=== PATIENT | male | born 1945 | race Caucasian/White ===

== ENCOUNTER → 2021-09-03 | Outpatient (CLI) | payer MEDICARE, OTHER ==
[2021-09-03 13:39] LABS: HEMATOCRIT 45 % (40-54); HEMOGLOBIN 14.9 g/dL (13.3-17.7); MEAN CORPUSCULAR HEMOGLOBIN 30 pg (25-34); MEAN CORPUSCULAR HGB CONC 34 g/dL (32-36); MEAN CORPUSCULAR VOLUME 90 fL (80-99); MEAN PLATELET VOLUME 8.9 fL (9.0-12.2); PLATELET COUNT 210 10^3/uL (130-400)
--- NOTE | 2021-09-03 13:49 | Diagnostic Imaging Report ---
INDICATION: COUGH. COMPARISON: None. FINDINGS: Frontal and lateral views of the chest demonstrate normal heart size and pulmonary vascularity. The lungs are clear. There are no signs of infiltrate, pleural effusions, or pneumothoraces. The visualized osseous structures show no acute abnormalities. IMPRESSION: No acute process. No signs of infiltrates, effusions, or pneumothoraces. Dictated by: Dictated on workstation # [id number]
[2021-09-03 14:22] LABS: ALBUMIN 3.9 GM/DL (3.2-4.5); BILIRUBIN,TOTAL 0.4 MG/DL (0.1-1.0); CALCIUM 9.2 MG/DL (8.5-10.1); CREATININE SERUM 0.95 MG/DL (0.60-1.30); FREE T4 (FREE THYROXINE) 0.91 NG/DL (0.70-1.48); POTASSIUM 4.3 MMOL/L (3.6-5.0); TOTAL PROTEIN 7.5 GM/DL (6.4-8.2)
== END ==
LOC: RAD 13:01
PROVIDERS: ATTEND Internal Medicine
DX: R05.9 Cough, unspecified (principal); E11.9 Type 2 diabetes mellitus without complications; I10 Essential (primary) hypertension
CPT/HCPCS: 36415; 71046; 80053; 80061; 82043; 83036; 83880; 84439; 84443; 85027

== ENCOUNTER → 2021-11-05 | Outpatient (CLI) | payer MEDICARE, OTHER ==
[~2021-11-05] MED LIST: CATHETER FLUSH 10 ML SYR IV PRN; REGADENOSON 0.4 MG/5 ML SYR (LEXISCAN) IV ONE
[2021-11-05 13:37] VITALS: BP 147/74
--- NOTE | 2021-11-05 15:56 | Cardiology Stress Test Report ---
Stress Test Report Date of Procedure/Referring: Date of Procedure: Nov 05, 2021 PCP Livia Aldridge MD Admitting Physician Yolanda Ga DO Indications: CP Baseline Heart Rate: 70 Baseline Blood Pressure: Blood Pressure Systolic: 147 Blood Pressure Diastolic: 74 Baseline Vitals Vital Signs Date Time Temp Pulse Resp B/P (MAP) Pulse Ox O2 Delivery O2 Flow Rate FiO2 11/05/21 13:37 85 147/74 (98) 98 Room Air Baseline EKG: Baseline EKG: NSR Summary After explaining the procedure to the patient, he signed a consent and then brought to the stress nuclear laboratory. Patient received 0.4 mg Lexiscan for stress test, ECG, heart rate and blood pressure were monitored continuously. Resting and stress dose of radio tracer were injected, imaging was acquired and reviewed in short axis, horizontal long axis and vertical long axis views. TID: 1.19 SSS: 5 SDS: 4 EF: 61 1. Patient tolerated Lexiscan well 2. Mild decrease uptake at the mid and apical anterolateral and inferolateral wall with mild reversibility 3. Normal left ventricular size, EF 61% LIVIA ALDRIDGE MD Nov 05, 2021 15:56
== END ==
LOC: CARD 12:00
PROVIDERS: ATTEND Internal Medicine Cardiovascular Disease
DX: I35.1 Nonrheumatic aortic (valve) insufficiency (principal); I35.8 Other nonrheumatic aortic valve disorders; I11.9 Hypertensive heart disease without heart failure; I25.10 Atherosclerotic heart disease of native coronary artery without angina pectoris
CPT/HCPCS: 78452; 93017; 93306; A9502

== ENCOUNTER 2021-11-19 09:00 | Day surgery (SDC) | payer MEDICARE, OTHER ==
[~2021-11-19] VITALS: Ht 187.9 cm; Wt 139.5 kg
[2021-11-19 07:38] VITALS: BP 145/80
--- NOTE | 2021-11-19 07:53 | Diagnostic Imaging Report ---
EXAMINATION: Chest 1 view HISTORY: ABNORMAL STRESS TEST, SOB COMPARISON: 09/03/2021 FINDINGS: Heart size is normal. There is prominence of the pulmonary vasculature which can be seen with pulmonary vascular congestion. The lungs are clear without consolidation, pleural effusion, or pneumothorax. The osseous structures are intact. IMPRESSION: 1. No acute radiographic abnormality in the chest. 2. Findings suggestive of pulmonary vascular congestion. Dictated by: Dictated on workstation # [id number]
[2021-11-19 07:56] LABS: HEMATOCRIT 41 % (40-54); HEMOGLOBIN 13.6 g/dL (13.3-17.7); MEAN CORPUSCULAR HEMOGLOBIN 29 pg (25-34); MEAN CORPUSCULAR HGB CONC 33 g/dL (32-36); MEAN CORPUSCULAR VOLUME 89 fL (80-99); MEAN PLATELET VOLUME 9.4 fL (9.0-12.2); PLATELET COUNT 180 10^3/uL (130-400); WHITE BLOOD COUNT 7.1 10^3/uL (4.3-11.0)
[2021-11-19 08:17] LABS: ALBUMIN 3.8 GM/DL (3.2-4.5); BILIRUBIN,TOTAL 0.4 MG/DL (0.1-1.0); CALCIUM 8.6 MG/DL (8.5-10.1); CREATININE SERUM 1.04 MG/DL (0.60-1.30); POTASSIUM 4.1 MMOL/L (3.6-5.0); TOTAL PROTEIN 7.1 GM/DL (6.4-8.2)
[2021-11-19 08:23] LABS: INR 0.9 (0.8-1.4); PROTHROMBIN TIME PATIENT 12.4 SEC (12.2-14.7)
[~2021-11-19 09:00] MED LIST changes: +ASPI-1238 PO; +ATOR20TA66 PO; -CATHETER FLUSH 10 ML SYR IV PRN; +FLUT1DIS26 IH; +HEParin (CATH LAB) 2,000 ML IV ONE; +IPRA3AMP31 IH; +LIDOCAINE 1% INJ 20 ML VIAL ONE; +LOSA25TA41 PO; +NS IV 1000 ML 1,000 ML IV SCH; +NS IV 1000 ML 1,000 ML ONE; -REGADENOSON 0.4 MG/5 ML SYR (LEXISCAN) IV ONE
--- NOTE | 2021-11-19 09:50 | Conscious Sedation/ASA ---
Conscious Sedation Pre-Proced Time 09:49 ASA Score 3 For ASA 3 and 4: Consider anesthesia and medical clearance. Also, for patients with a history of failed moderate sedation consider anesthesia. Airway Lungs Heart ASA score ASA 1: a normal healthy patient ASA 2: a patient with a mild systemic disease (mid diabetes, controlled hypertension, obesity x ASA 3: a patient with a severe systemic disease that limits activity (angina, COPD, prior Myocardial infarction) ASA 4: a patient with an incapacitating disease that is a constant threat to life (CHF, renal failure) ASA 5: a moribund patient not expected to survive 24 hrs. (ruptured aneurysm) ASA 6: a declared brain- patient whose organs are being harvested. For emergent operations, add the letter E after the classification Mallampati Classification Grade 3 Sedation Plan Analgesia, Amnesia, Plan communicated to team members, Discussed options with patient/fam, Discussed risks with patient/fam The patient is an appropriate candidate to undergo the planned procedure, sedation, and anesthesia. The patient immediately re-assessed prior to indication. LIVIA ZAMARRIPA MD Nov 19, 2021 09:50
[2021-11-19] MEDS ORDERED: VERAPAMIL 5 MG/2 ML (CALAN) VIAL IV ONE (10:44)
[2021-11-19] MEDS ORDERED: HEParin 1000 UNIT/ML (10ML VIAL) FOR BOLUS ONE (10:44)
[2021-11-19] MEDS ORDERED: fentaNYL INJ 100 MCG/2 ML AMP ONE (10:44)
[2021-11-19] MEDS ORDERED: MIDAZOLAM 5 MG/5 ML (VERSED) VIAL ONE (10:44)
[2021-11-19] MEDS ORDERED: NITRO DRIP 25000 MCG/D5W 250 ML IV ONE (10:44)
[2021-11-19] MEDS ORDERED: ASPIRIN 325 MG (5 GR) TABLET ONE (11:36)
[2021-11-19] MEDS ORDERED: CLOPIDOGREL 300 MG (PLAVIX) TABLET PO ONE (11:37)
--- NOTE | 2021-11-19 11:41 | Cardiac Cath Report ---
Cardiac Cath Report Physician (s)/Editor Managing Newspaper (s) Physician LIVIA ZAMARRIPA MD Pre-Procedure Diagnosis Pre-Procedure Diagnosis: Coronary artery disease Post-Procedure Note Procedure Start Date: Nov 19, 2021 Name of Procedure: Left heart catheterization Stenting to the ramus intermedius Findings/Procedure Note PROCEDURE NOTE: 76-year-old gentleman with history of hypertension, hyperlipidemia, has been having shortness of breath, had an abnormal stress test, scheduled for cardiac catheterization possible PTCA. After explaining the procedure to the patient, all pros and cons were explained, all questions were answered. The patient signed the consent and then he was placed on the cardiac catheterization laboratory. Groin was prepped SL fashion local anesthesia was used. Sheath placed in the right radial artery, [place] catheter was advanced to the left ventricular cavity, pressure was measured, pullback to the aorta was done, pressure was measured, engaged the right and left coronary system, angiogram was done. Patient was noted to have severe ostial and proximal ramus intermedius artery branch. He was given a total study of 6000 units of heparin, catheter was exchanged using EBU 3.5 guide. BMW wire was advanced and parked in the distal ramus intermedius then predilatation with 3 x 20 balloon was done then I proceeded with deployment of davy point stent 3 x 28 mm expanded to 3.2 mm under 15 roshni with excellent results, angiogram showed no complication. At the end of the procedure the sheath was removed. Vascular band deployed FINDINGS: Hemodynamics LV 120/8, end-diastolic pressure of 8 Aorta 111/66 mean of 86 ANATOMY: Left Main is free of obstructive disease Left Anterior Descending has mild disease slightly tortuous artery, there is a small diagonal artery that have severe stenosis, very small artery for intervention Left Circumflex is moderate in size with mild to moderate disease in the midportion nonobstructive disease Ramus intermedius is a large artery with severe ostial and proximal stenosis, cee ccessful balloon angioplasty and stenting using davy point stent 3 x 28 mm expanded to 3.2 mm with excellent results Right Coronary Artery is moderate in size with moderate disease nonobstructive disease LV Gram was not done, pressure was measured CONCLUSION: 1. Severe ostial and proximal ramus intermedius artery stenosis with successful balloon angioplasty and stenting using davy point stent 3 x 28 mm expanded to 3.2 mm with excellent results 2. Severe stenosis at the proximal diagonal artery that is fairly small artery not amendable to intervention 3. Mild to moderate disease in the mid circumflex artery and proximal and mid right coronary artery and distal LAD 4. Normal left ventricular end-diastolic pressure DISCUSSION AND RECOMMENDATION: Patient was loaded with aspirin and Plavix, continue to maximize medical ther apy. Anesthesia Type: Conscious Sedation Estimated blood loss (mL): 25 ml Contrast Amount: 124 ml Total Radiation Dose: 1225 mGy Post-Procedure Diagnosis Post-operative diagnosis: Shortness of breath Coronary artery disease Hypertension Hyperlipidemia LIVIA ZAMARRIPA MD Nov 19, 2021 11:41
[2021-11-19] MEDS ORDERED: CLOP75TA28 PO (11:42)
--- NOTE | 2021-11-19 11:42 | Discharge Inst-Post CATH ---
Discharge Inst-CATH/EP Problems Reviewed?: Yes Post Cardiac Cath/EP D/C Inst Follow Up/Plan Appointment with Dr. Aldridge's office next week <b>CARDIAC CATH/EP PROCEDURE DISCHARGE INSTRUCTIONS</b> ACTIVITY * Go Home directly and rest. * Limit activity of the leg (or wrist if it was used) for 7 days including aerobics, swimming, jogging, bicycling, etc. * Restrict stair-climbing for 7 days if possible, if not, climb up with your non-cath leg, then bring together on the same step. * Avoid lifting, pushing, pulling or excessive movement of the affected extremity for 7 days. * Customary sexual activity may be resumed after 2 days-use caution not to use a position that strains or causes pain to the affected extremity. * No driving for 24 hours. * NO SMOKING. * Avoid straining for bowel movements for 7 days. * Gentle walking on level ground is allowed. * Returning to work will depend on the type of procedure and the results. Your doctor will discuss this with you. CALL YOUR DOCTOR FOR ANY OF THE FOLLOWING: *If bleeding from the puncture site occurs- Apply gentle pressure to site with clean cloth and call your doctor or EMS. * If a knot or lump forms under the skin, increases in size, or causes pain. * If bruising appears to be worsening or moving further down your leg instead of disappearing. * Temperature above 101 F. CARE OF YOUR GROIN INCISION; * Bruising or purple discoloration of the skin near the puncture site is common. * You may shower only, no bathtub bathing for 5 days. Be careful to avoid slipping as your leg may feel stiff. * If a closure device was used on your femoral artery, please see the attached guide regarding care of the device and your leg. * Leave dressing on FOR 24 hours. CARE OF YOUR WRIST INCISION; * Bruising or purple discoloration of the skin near the puncture site is common. * You may shower. * DO NOT submerge wrist. * Leave dressing on FOR 24 hours. LIVIA ALDRIDGE MD Nov 19, 2021 11:42
[2021-11-19] MEDS ORDERED: RT-ALBUTEROL/IPRATROPIUM 3 ML (DUONEB) VIAL IH PRN (11:45)
[2021-11-19] MEDS ORDERED: NS IV 1000 ML 1,000 ML IV SCH (11:45)
[2021-11-19 12:00] VITALS: BP 124/66
[2021-11-19 16:00] VITALS: BP_SYST 124; BP_SYST 143; BP_DIAS 66; BP_DIAS 70
[2021-11-19] MEDS ORDERED: RT--FLUTICASONE/SALMETEROL 113-14 (AIRDUO RespiCLICK) IH SCH (21:00)
[2021-11-19] MEDS ORDERED: NON-FORMULARY MEDICATION 1 EA EA (Fluticasone/Salmeterol (Advair 250-50 Diskus) 1 EACH) IH SCH (21:00)
[2021-11-20] MEDS ORDERED: ASPIRIN E.C. 81 MG (ECOTRIN) TAB PO SCH (09:00)
[2021-11-20] MEDS ORDERED: CLOPIDOGREL 75 MG (PLAVIX) TABLET PO SCH (09:00)
== END 2021-11-19 18:15 | disposition home or self-care (01) ==
LOC: CATH 09:00 → CSD 11:51 → CATH 18:15
PROVIDERS: ATTEND Internal Medicine Cardiovascular Disease
DX: I25.10 Atherosclerotic heart disease of native coronary artery without angina pectoris (principal); I49.1 Atrial premature depolarization; I10 Essential (primary) hypertension; I65.23 Occlusion and stenosis of bilateral carotid arteries; E78.5 Hyperlipidemia, unspecified; F17.210 Nicotine dependence, cigarettes, uncomplicated; Z79.82 Long term (current) use of aspirin; Z79.899 Other long term (current) drug therapy
CPT/HCPCS: 71045; 80053; 80061; 85027; 85610; 85730; 87081; 93458; C1725; C1769; C1874; C1887; C1894; C9600; 36415

== ENCOUNTER 2021-12-23 15:03 | Emergency (ER) | payer MEDICARE, OTHER ==
[~2021-12-23] VITALS: Ht 187 cm; Wt 136.0 kg
[~2021-12-23 15:03] MED LIST changes: +CLOP75TA28 PO; -HEParin (CATH LAB) 2,000 ML IV ONE; -LIDOCAINE 1% INJ 20 ML VIAL ONE; -NS IV 1000 ML 1,000 ML IV SCH; -NS IV 1000 ML 1,000 ML ONE
--- NOTE | 2021-12-23 15:29 | Diagnostic Imaging Report ---
INDICATION: Chest pain. COMPARISON: 11/19/2021. TECHNIQUE: Single radiograph of the chest dated 12/23/2021. FINDINGS: The cardiac silhouette is mildly enlarged. Minimal central pulmonary vascular congestion. Low lung volumes without focal pulmonary opacity. No pleural effusion. No pneumothorax. No acute osseous abnormality. IMPRESSION: Mild cardiomegaly and minimal central pulmonary vascular congestion, likely accentuated by low lung volumes. No significant pleural effusion. Dictated by: Dictated on workstation # [id number]
--- NOTE | 2021-12-23 15:35 | ED Chest Pain ---
General Chief Complaint: Chest Pain Stated Complaint: CHEST PAIN Nursing Triage Note: ARRIVED VIA AMB TO ROOM WITH COMPLAINTS OF CHEST PAIN X3-4 WEEKS. STATES HE HAS HAD THE PAIN SINCE DALLIN PUT IN STENTS. Source: patient, spouse (ZENIA ANDERSEN MED STUDENT) History of Present Illness Date Seen by Provider: Dec 23, 2021 Time Seen by Provider: 15:15 Initial Comments This is a 76 YO male with history of HTN, CAD, COPD, and pre-diabetes presents t o the ED with chest discomfort. Pt says he has had this pain since his heart cath by Dr. Aldridge about 5 weeks ago on 11/19/21. Says the pain is mild and comes and goes on its own, not associated with exertion. Does not take any medication for the pain. Has taken nitro in the past but says he stopped because they caused headaches. Has been taking Plavix and baby ASA as prescribed by Dr. Aldridge since the cath. Pt says the only reason he came in today is because he mention the pain to his home health nurse, who then called Dr. Aldridge. He recommended pt come to the ED for evaluation. Severity/Quality: mild Associated Symptoms: denies symptoms (ZENIA ANDERSEN MED STUDENT) Allergies and Home Medications Allergies Coded Allergies: Penicillins (Verified Allergy, Unknown, 11/19/21) propoxyphene (Verified Allergy, Unknown, 11/19/21) Patient Home Medication List Home Medication List Reviewed: Yes (NERISSA SHAH MD) Aspirin (Aspirin EC) 81 Mg Tablet.dr, 81 MG PO DAILY, (Reported) Entered as Reported by: VERONICA MILLER on 11/19/21 0808 Atorvastatin Calcium (Atorvastatin Calcium) 20 Mg Tablet, 20 MG PO DAILY, (Reported) Entered as Reported by: VERONICA MILLER on 11/19/21 0837 Clopidogrel Bisulfate (Clopidogrel) 75 Mg Tablet, 75 MG PO DAILY Prescribed by: LIVIA ALDRIDGE on 11/19/21 1142 Fluticasone/Salmeterol (Advair 250-50 Diskus) 1 Each Blst.w.dev, 1 EACH IH BID, (Reported) Entered as Reported by: VERONICA MILLER on 11/19/21 0808 Ipratropium/Albuterol Sulfate (Iprat-Albut 0.5-3(2.5) mg/3 ml) 3 Ml Ampul.neb, 3 ML IH TID PRN for SHORTNESS OF BREATH, (Reported) Entered as Reported by: VERONICA MILLER on 11/19/21 0808 Losartan Potassium (Losartan Potassium) 25 Mg Tablet, 25 MG PO DAILY, (Reported) Entered as Reported by: VERONICA MILLER on 11/19/21 0808 Ranolazine (Ranexa) 500 Mg Tab.er.12h, 500 MG PO BID Prescribed by: NERISSA ROMAN on 12/23/21 1621 Review of Systems Review of Systems Constitutional: No chills, No diaphoresis, No fever EENTM: No Blurred Vision, No Double Vision Respiratory: Denies Cough, Denies Stridor Cardiovascular: See HPI, Chest Pain; Denies Palpitations Gastrointestinal: Denies Abdominal Pain, Denies Nausea, Denies Vomiting Genitourinary: No Symptoms Reported Musculoskeletal: No back pain, No neck pain Skin: No pruritus, No rash Psychiatric/Neurological: Denies Headache, Denies Numbness Endocrine: No Symptoms Reported Hematologic/Lymphatic: No Symptoms Reported (ZENIA ANDERSEN STUDENT) All Other Systems Reviewed Negative Unless Noted: Yes (Negative excepted noted.) (ZENIA ANDERSEN STUDENT) Past Ydzohgp-Bftkeh-Dasgak Hx Patient Social History Tobacco type used: Cigarettes Smoking Status: Former Smoker (ZENIA ANDERSEN STUDENT) Physical Exam Vital Signs Vital Signs - First Documented 12/23/21 15:03 Temp 36.3 Pulse 81 Resp 16 B/P (MAP) 128/120 (123) Pulse Ox 98 O2 Delivery Room Air (NERISSA SHAH MD) Vital Signs Capillary Refill : Less Than 3 Seconds (ZENIA ANDERSEN MED STUDENT) Height, Weight, BMI Height: '" Weight: lbs. oz. kg; 38.00 BMI Method: General Appearance: No Apparent Distress, WD/WN, Obese HEENT: PERRL/EOMI; No Pale Conjunctivae (L), No Pale Conjunctivae (R) Neck: Full Range of Motion, Normal Inspection Respiratory: Chest Non Tender, Lungs Clear, No Accessory Muscle Use, No Respiratory Distress Cardiovascular: Regular Rate, Rhythm, No Murmur Gastrointestinal: Non Tender, Soft, Other (obese) Extremity: Other (chronic venous stasis changes in BLE) Neurologic/Psychiatric: Alert, Oriented x3, No Motor/Sensory Deficits, Normal Mood/Affect Skin: Normal Color, Warm/Dry (ZENIA ANDERSEN MED STUDENT) Progress/Results/Core Measures Results/Orders Lab Results Laboratory Tests Test 12/23/21 15:25 Range/Units White Blood Count 6.7 4.3-11.0 10^3/uL Red Blood Count 4.44 4.30-5.52 10^6/uL Hemoglobin 13.1 L 13.3-17.7 g/dL Hematocrit 39 L 40-54 % Mean Corpuscular Volume 88 80-99 fL Mean Corpuscular Hemoglobin 30 25-34 pg Mean Corpuscular Hemoglobin Concent 34 32-36 g/dL Red Cell Distribution Width 12.7 10.0-14.5 % Platelet Count 187 130-400 10^3/uL Mean Platelet Volume 9.1 9.0-12.2 fL Immature Granulocyte % (Auto) 0 % Neutrophils (%) (Auto) 58 42-75 % Lymphocytes (%) (Auto) 30 12-44 % Monocytes (%) (Auto) 7 0-12 % Eosinophils (%) (Auto) 3 0-10 % Basophils (%) (Auto) 1 0-10 % Neutrophils # (Auto) 3.9 1.8-7.8 10^3/uL Lymphocytes # (Auto) 2.0 1.0-4.0 10^3/uL Monocytes # (Auto) 0.5 0.0-1.0 10^3/uL Eosinophils # (Auto) 0.2 0.0-0.3 10^3/uL Basophils # (Auto) 0.1 0.0-0.1 10^3/uL Immature Granulocyte # (Auto) 0.0 0.0-0.1 10^3/uL Prothrombin Time 13.0 12.2-14.7 SEC INR Comment 0.9 0.8-1.4 Activated Partial Thromboplast Time 26 24-35 SEC Sodium Level 137 135-145 MMOL/L Potassium Level 4.4 3.6-5.0 MMOL/L Chloride Level 105 98-107 MMOL/L Carbon Dioxide Level 19 L 21-32 MMOL/L Anion Gap 13 5-14 MMOL/L Blood Urea Nitrogen 22 H 7-18 MG/DL Creatinine 1.23 0.60-1.30 MG/DL Estimat Glomerular Filtration Rate 62 BUN/Creatinine Ratio 18 Glucose Level 118 H 70-105 MG/DL Calcium Level 8.8 8.5-10.1 MG/DL Corrected Calcium 9.0 8.5-10.1 MG/DL Magnesium Level 2.0 1.6-2.4 MG/DL Total Bilirubin 0.5 0.1-1.0 MG/DL Aspartate Amino Transf (AST/SGOT) 10 5-34 U/L Alanine Aminotransferase (ALT/SGPT) 12 0-55 U/L Alkaline Phosphatase 56 40-136 U/L Myoglobin 101.7 H 10.0-92.0 NG/ML Troponin I < 0.028 <0.028 NG/ML Total Protein 6.5 6.4-8.2 GM/DL Albumin 3.7 3.2-4.5 GM/DL (NERISSA SHAH MD) My Orders Orders - NERISSA SHAH MD Cbc With Automated Diff (12/23/21 15:05) Magnesium (12/23/21 15:05) Chest 1 View, Ap/Pa Only (12/23/21 15:05) Ekg Tracing (12/23/21 15:05) Comprehensive Metabolic Panel (12/23/21 15:05) Myoglobin Serum (12/23/21 15:05) Protime With Inr (12/23/21 15:05) Partial Thromboplastin Time (12/23/21 15:05) O2 (12/23/21 15:05) Monitor-Rhythm Ecg Trace Only (12/23/21 15:05) Ed Iv/Invasive Line Start (12/23/21 15:05) Troponin I [place] (12/23/21 15:05) Furosemide Injection (Lasix Injection) (12/23/21 16:30) Potassium Chloride (Tablet) (Klor Con Ta (12/23/21 16:30) (NERISSA SHAH MD) Medications Given in ED (NERISSA SHAH MD) Vital Signs/I&O 12/23/21 12/23/21 15:03 16:51 Temp 36.3 Pulse 81 70 Resp 16 16 B/P (MAP) 128/120 (123) 105/64 Pulse Ox 98 97 O2 Delivery Room Air Room Air (NERISSA SHAH MD) Blood Pressure Mean: 123 Progress Progress Note : Progress Note Work-up was unremarkable. Dr. Aldridge presented to the ER to evaluate the patient. He recommended starting Ranexa. Patient reported compliance with Plavix and pain has been intermittent since his heart cath. Ranexa will hopefully reduce his occurrences of pain. Dr. Aldridge also recommended giving Lasix 20 mg IV before discharge to help with his peripheral edema. Patient expressed some concern about leg aching in general and edema. It has been some years since he has had any ultrasound studies done of his legs. He has an appointment soon with Dr. Mcintyre, and he was advised to discuss this with her. Arterial ultrasound of the lower extremities may be warranted depending on proximity in time of prior studies. (NERISSA SHAH MD) Initial ECG Impression Date: Dec 23, 2021 Initial ECG Impression Time: 15:06 Initial ECG Rate: 79 Initial ECG Rhythm: Normal Sinus Comment Sinus rhythm with no ST elevation or depression. Borderline left axis deviation. No abnormal intervals. (NERISSA SHAH MD) Diagnostic Imaging Diagonstic Imaging: Xray Plain Films/CT/US/NM/MRI: chest Comments NAME: [facility] REC#: [id number] PT STATUS: DEP ER : 1945 PHYSICIAN: NERISSA SHAH MD ADMIT DATE: 12/23/21/ER Signed Date of Exam:12/23/21 CHEST 1 VIEW, AP/PA ONLY INDICATION: Chest pain. COMPARISON: 11/19/2021. TECHNIQUE: Single radiograph of the chest dated 12/23/2021. FINDINGS: The cardiac silhouette is mildly enlarged. Minimal central pulmonary vascular congestion. Low lung volumes without focal pulmonary opacity. No pleural effusion. No pneumothorax. No acute osseous abnormality. IMPRESSION: Mild cardiomegaly and minimal central pulmonary vascular congestion, likely accentuated by low lung volumes. No significant pleural effusion. Dictated by: Dictated on workstation # [id number] Dict: 12/23/21 1524 Trans: 12/23/211727 [id number] Interpreted by: JUAN MCGHEE MD Electronically signed by: JUAN MCGHEE MD 12/23/211727 (NERISSA SAHH MD) Departure Impression Primary Impression: Chest pain Qualified Codes: R07.9 - Chest pain, unspecified Additional Impression: Lower extremity edema Disposition: 01 HOME, SELF-CARE Condition: Stable Departure-Patient Inst. Decision time for Depature: 16:19 (NERISSA SHAH MD) Referrals: GURDEEP MCINTYRE DO (PCP/Family) Primary Care Physician Patient Instructions: Chest Pain, Adult ED Add. Discharge Instructions: Continue your medication as previously prescribed, and add Ranexa as prescribed to help prevent more episodes of chest pain. If Ranexa causes lightheadedness, dizziness, or intolerable headache, please stop the medication and contact Dr. Aldridge. Discuss your leg swelling and leg discomfort with Dr. Mcintyre at your appointment. If you have not had ultrasound studies of your leg arteries in the recent past, discuss obtaining these with Dr. Mcintyre. Return to care if you have worsening symptoms. Call with questions or concerns. All discharge instructions reviewed with patient and/or family. Voiced understanding. Scripts Ranolazine (Ranexa) 500 Mg Tab.er.12h 500 MG PO BID, #60 TAB Prov: NERISSA SHAH MD 12/23/21 Medical Student Attestation and Attending Note: I have personally interviewed and examined this patient along with Zenia Andersen, MS 4. I have reviewed student documentation including history, physical, and assessments. I agree with the documentation except where otherwise noted. Exam: General: Alert, oriented, no acute distress, well developed, obese HEENT: Normocephalic and atraumatic Heart: Regular rate and rhythm without murmur Lungs: Clear to auscultation bilaterally with normal effort Abdomen: Soft, nontender, nondistended, normal bowel sounds Extremities: Firm edema of the legs, equal bilaterally Neuropsych: Alert, oriented, no focal deficits Skin: Warm and dry without rashes (NERISSA SHAH MD) Copy Copies To 1: GURDEEP MCINTYRE DO Copies To 2: LIVIA ALDRIDGE MD, CHRISTINE MED STUDENT Dec 23, 2021 15:35 NERISSA SHAH MD Dec 23, 2021 16:21
[2021-12-23 15:36] LABS: BASOPHILS # (AUTO) 0.1 10^3/uL (0.0-0.1); BASOPHILS % (AUTO) 1 % (0-10); EOSINOPHILS # (AUTO) 0.2 10^3/uL (0.0-0.3); EOSINOPHILS % (AUTO) 3 % (0-10); HEMATOCRIT 39 % (40-54); HEMOGLOBIN 13.1 g/dL (13.3-17.7); LYMPHOCYTES % (AUTO) 30 % (12-44); MEAN CORPUSCULAR HEMOGLOBIN 30 pg (25-34); MEAN CORPUSCULAR HGB CONC 34 g/dL (32-36); MEAN CORPUSCULAR VOLUME 88 fL (80-99); MEAN PLATELET VOLUME 9.1 fL (9.0-12.2); MONOCYTES # (AUTO) 0.5 10^3/uL (0.0-1.0); MONOCYTES % (AUTO) 7 % (0-12); NEUTROPHILS # (AUTO) 3.9 10^3/uL (1.8-7.8); NEUTROPHILS % (AUTO) 58 % (42-75); PLATELET COUNT 187 10^3/uL (130-400); WHITE BLOOD COUNT 6.7 10^3/uL (4.3-11.0)
[2021-12-23 15:40] LABS: ALBUMIN 3.7 GM/DL (3.2-4.5); POTASSIUM 4.4 MMOL/L (3.6-5.0)
[2021-12-23 15:41] LABS: CALCIUM 8.8 MG/DL (8.5-10.1)
[2021-12-23 15:42] LABS: TOTAL PROTEIN 6.5 GM/DL (6.4-8.2)
[2021-12-23 15:44] LABS: BILIRUBIN,TOTAL 0.5 MG/DL (0.1-1.0); INR 0.9 (0.8-1.4)
[2021-12-23 15:46] LABS: CREATININE SERUM 1.23 MG/DL (0.60-1.30)
[2021-12-23] MEDS ORDERED: RANO500T3 PO (16:21)
[2021-12-23] MEDS ORDERED: FUROSEMIDE 40 MG/4 ML INJ (LASIX) IVP ONE (16:30)
[2021-12-23] MEDS ORDERED: KCL 10 MEQ TAB (MICRO K) PO ONE (16:30)
[2021-12-23 16:51] VITALS: BP 105/64
== END 2021-12-23 16:51 | disposition home or self-care (01) ==
LOC: EDUNIT# 15:03 → ER 15:04
DX: R07.9 Chest pain, unspecified (principal); R60.9 Edema, unspecified; E66.9 Obesity, unspecified; Z68.38 Body mass index [BMI] 38.0-38.9, adult; Z87.891 Personal history of nicotine dependence; Z79.02 Long term (current) use of antithrombotics/antiplatelets
CPT/HCPCS: 36415; 71045; 80053; 83735; 83874; 84484; 85025; 85610; 85730; 93005; 93041

== ENCOUNTER 2022-02-06 11:11 | Outpatient (RCR) | payer MEDICARE, OTHER ==
[~2022-02-06 11:11] MED LIST changes: +RANO500T3 PO
== END 2022-02-07 | disposition still patient (30) ==
LOC: CR 11:11
PROVIDERS: ATTEND Internal Medicine Cardiovascular Disease
DX: I51.7 Cardiomegaly (principal)
CPT/HCPCS: 93798

== ENCOUNTER 2022-03-06 11:29 | Outpatient (RCR) | payer MEDICARE, OTHER | END 2022-03-10 | disposition home or self-care (01) | LOC: CR 11:29 | PROVIDERS: ATTEND Internal Medicine Cardiovascular Disease | DX: Z29.8 Encounter for other specified prophylactic measures (principal); Z98.61 Coronary angioplasty status | CPT/HCPCS: 93798 ==

== ENCOUNTER 2022-04-08 14:53 | Outpatient (RCR) | payer MEDICARE, OTHER | END 2022-04-09 | disposition home or self-care (01) | LOC: CR 14:53 | PROVIDERS: ATTEND Internal Medicine Cardiovascular Disease | DX: Z29.8 Encounter for other specified prophylactic measures (principal); Z98.61 Coronary angioplasty status | CPT/HCPCS: 93798 ==

== ENCOUNTER 2022-04-24 11:25 | Outpatient (RCR) | payer MEDICARE, OTHER | END 2022-05-10 | disposition home or self-care (01) | LOC: CR 11:25 | PROVIDERS: ATTEND Internal Medicine Cardiovascular Disease | DX: Z29.8 Encounter for other specified prophylactic measures (principal); Z98.61 Coronary angioplasty status | CPT/HCPCS: 93798 ==

== ENCOUNTER 2022-08-12 05:54 | Outpatient (CLI) | payer MEDICARE, OTHER ==
[~2022-08-12] VITALS: Ht 182.9 cm; Wt 152.6 kg
[2022-08-12] MEDS ORDERED: ALBU8.5H9 IH (09:35)
[2022-08-12] MEDS ORDERED: MV-M1CAP24 PO (09:35)
[2022-08-12] MEDS ORDERED: CHOL200074 PO (09:35)
[2022-08-12] MEDS ORDERED: CALC625T PO (09:35)
[2022-08-12] MEDS ORDERED: GLIM1TAB4 PO (09:35)
[2022-08-12] MEDS ORDERED: TMSL.4C PO (09:35)
[2022-08-12] MEDS ORDERED: MULT-1018 PO (09:35)
[2022-08-12] MEDS ORDERED: MONT-40 PO (09:35)
[2022-08-12] MEDS ORDERED: LACTATED RINGERS 1,000 ML IV STA (09:36)
[2022-08-12] MEDS ORDERED: LIDOCAINE JELLY 2% 6 ML SYRINGE MM PRN (09:45)
== END 2022-08-12 09:38 | disposition home or self-care (01) ==
LOC: PREOP 05:54
PROVIDERS: ATTEND Surgery
DX: Z01.818 Encounter for other preprocedural examination (principal)

== ENCOUNTER 2022-08-19 12:10 | Day surgery (SDC) | payer MEDICARE, OTHER ==
[~2022-08-19] VITALS: Ht 183 cm; Wt 152.6 kg
[~2022-08-19 12:10] MED LIST changes: +ALBU8.5H9 IH; +CALC625T PO; +CHOL200074 PO; +GLIM1TAB4 PO; +MONT-40 PO; +MULT-1018 PO; +MV-M1CAP24 PO; +TMSL.4C PO
[2022-08-19] MEDS ORDERED: LACTATED RINGERS 1,000 ML IV ONE (12:18)
[2022-08-19] MEDS ORDERED: LACTATED RINGERS 1,000 ML IV STA (12:21)
--- NOTE | 2022-08-19 12:27 | Progress Note-Pre Operative ---
Pre-Operative Progress Note Date of Available H&P: Aug 19, 2022 Date H&P Reviewed: Aug 19, 2022 Time H&P Reviewed: 12:20 History & Physical: No changes noted Pre-Operative Diagnosis: screening o MEHRAN BURGOS MD Aug 19, 2022 12:27
--- NOTE | 2022-08-19 12:29 | Discharge Inst-Surgical ---
D/C Lap Instructions-AUBREY Follow Up Activity as tolerated High Fiber Diet 25g or more per day Avoid Alcohol, Caffeine, Spicy [place] and Acid foods. Drink 64 fluid oz or more of fluids per day. Symptoms to Report: Fever over 101 degree F, Nausea/Vomiting If any problems/questions: Contact your physician or go to Emergency Room MEHRAN BURGOS MD Aug 19, 2022 12:29
[2022-08-19 12:30] VITALS: BP 143/87
[2022-08-19] MEDS ORDERED: LIDOCAINE JELLY 2% 6 ML SYRINGE MM PRN (12:30)
[2022-08-19] MEDS ORDERED: ONDANSETRON 4 MG/2 ML (SDV) Z0FRAN IVP PRN (12:30)
[2022-08-19] MEDS ORDERED: ONDANSETRON 4 MG (ZOFRAN) ORAL DISSOLVE TAB PO PRN (12:30)
[2022-08-19] MEDS ORDERED: PROPOFOL INJECTION 50 ML IV ONE ×2 (13:39→14:02)
[2022-08-19 14:10] VITALS: BP 145/66
[2022-08-19 14:15] VITALS: BP 144/63
--- NOTE | 2022-08-19 14:17 | Anesthesia-General Post-Op ---
MAC Patient Condition Mental Status/LOC: Same as Preop Cardiovascular: Satisfactory Nausea/Vomiting: Absent Respiratory: Satisfactory Pain: Controlled Complications: Absent Post Op Complications Complications None Follow Up Care/Instructions Patient Instructions None needed. Anesthesiology Discharge Order Discharge Order Patient is doing well, no complaints, stable vital signs, no apparent adverse anesthesia problems. No complications reported per nursing. BJ STRONG CRNA Aug 19, 2022 14:17
[2022-08-19 14:20] VITALS: BP 149/73
[2022-08-19 14:50] VITALS: BP 174/82
[2022-08-19 15:00] VITALS: BP 174/82
--- NOTE | 2022-08-20 01:12 | OPERATIVE REPORT ---
DATE OF SERVICE: 08/19/2022 ATTENDING PRIMARY CARE: Dr. Yolanda Ga PREOPERATIVE DIAGNOSIS: Screening colonoscopy. POSTOPERATIVE DIAGNOSES: Mild chronic stage II external and internal hemorrhoids, polyp of the rectum approximately 3 mm in size, pedunculated polyp of the rectosigmoid junction approximately 4 mm in size, mild sigmoid diverticulosis. PROCEDURE: Colonoscopy with polypectomy with forceps and cautery and polypectomy with snare and cautery. SURGEON: Mehran Gross MD ANESTHESIA: Monitored anesthesia care. ESTIMATED BLOOD LOSS: Minimal. FINDINGS: Mild chronic stage II external and internal hemorrhoids, polyp of the rectum approximately 3 mm in size, pedunculated polyp of the rectosigmoid junction approximately 4 mm in size, mild sigmoid diverticulosis. DISPOSITION: The patient tolerated the procedure well. INDICATIONS: The patient is a 77-year-old male who was referred over to us for screening colonoscopy. He has not had a colonoscopy up to this point in his life. He reports that he does have some episodes of constipation as well as diarrhea and will also have some abdominal distention at times. He does not report any red blood per rectum nor any dark tarry stools. He also does not know of any family history of colon cancer. DESCRIPTION OF PROCEDURE: The patient was brought to the endoscopy suite and laid in the left lateral decubitus position. After adequate IV pain and sedative medications and monitored anesthesia care, a digital rectal examination was performed which revealed mild chronic stage II external and internal hemorrhoids, not actively edematous nor inflamed and no bleeding. Normal sphincter tone itself and there were no palpable masses. Prostate gland was palpable and appeared normal. The endoscope was then intubated into the anus, rectum and gently insufflated. The endoscope was then advanced through the valve of Warner of the rectum. At the distal rectum, a small hyperplastic polyp of approximately 3 mm in size was identified. This was biopsied and destroyed using forceps and electrocautery with visualization and good hemostasis. The endoscope was then advanced to the rectosigmoid junction where another polyp identified. This was pedunculated and slightly larger, approximately 4 mm in size. This was removed using a snare and electrocautery and retrieved through the scope. The endoscope was then advanced to the sigmoid colon where a mild sigmoid diverticulosis was identified. The endoscope was then advanced through the remainder of the descending, transverse and ascending colon to the cecum, which were normal. The endoscope was then slowly withdrawn, taking a second look with suctioning of residual air with no additional findings. The patient tolerated the procedure well. We will recommend medical management with a high fiber diet with incorporation of a fiber supplement, which is equal or exceed 30 grams daily to promote soft consistency stools on a daily basis. We will await the biopsy results and if these are hyperplastic polyps or tubular adenomas, he may wait 10 years for his next colonoscopy. However, if there is any villous component to any of the polyps, we would recommend a followup in 3 years. Job ID: [id number] DocumentID: [id number] Dictated Date: 08/19/2022 14:16:18 Dietary Clerk Date: 08/20/2022 01:10:00 Dictated By: MEHRAN GROSS MD
== END 2022-08-19 15:10 | disposition home or self-care (01) ==
LOC: ENDO 12:10
PROVIDERS: ATTEND Surgery
DX: Z12.11 Encounter for screening for malignant neoplasm of colon (principal); D12.8 Benign neoplasm of rectum; K64.8 Other hemorrhoids; K57.30 Diverticulosis of large intestine without perforation or abscess without bleeding; K64.1 Second degree hemorrhoids; E66.01 Morbid (severe) obesity due to excess calories; Z68.42 Body mass index [BMI] 45.0-49.9, adult; Z87.891 Personal history of nicotine dependence
CPT/HCPCS: 82947

== ENCOUNTER 2022-09-05 06:33 | Emergency (ER) | payer MEDICARE, OTHER ==
[~2022-09-05] VITALS: Ht 187 cm; Wt 149.0 kg
[2022-09-05] MEDS ORDERED: RT-ALBUTEROL/IPRATROPIUM 3 ML (DUONEB) VIAL INH ONE (07:45)
[2022-09-05 08:19] LABS: BASOPHILS # (AUTO) 0.1 10^3/uL (0.0-0.1); BASOPHILS % (AUTO) 1 % (0-10); EOSINOPHILS # (AUTO) 0.2 10^3/uL (0.0-0.3); EOSINOPHILS % (AUTO) 1 % (0-10); HEMATOCRIT 35 % (40-54); HEMOGLOBIN 11.7 g/dL (13.3-17.7); LYMPHOCYTES # (AUTO) 1.8 10^3/uL (1.0-4.0); LYMPHOCYTES % (AUTO) 17 % (12-44); MEAN CORPUSCULAR HEMOGLOBIN 31 pg (25-34); MEAN CORPUSCULAR HGB CONC 33 g/dL (32-36); MEAN CORPUSCULAR VOLUME 92 fL (80-99); MEAN PLATELET VOLUME 9.7 fL (9.0-12.2); MONOCYTES # (AUTO) 0.5 10^3/uL (0.0-1.0); MONOCYTES % (AUTO) 4 % (0-12); NEUTROPHILS # (AUTO) 8.2 10^3/uL (1.8-7.8); NEUTROPHILS % (AUTO) 76 % (42-75); PLATELET COUNT 173 10^3/uL (130-400); WHITE BLOOD COUNT 10.8 10^3/uL (4.3-11.0)
[2022-09-05 08:30] LABS: ALBUMIN 3.8 GM/DL (3.2-4.5)
[2022-09-05 08:31] LABS: POTASSIUM 4.4 MMOL/L (3.6-5.0)
[2022-09-05 08:33] LABS: TOTAL PROTEIN 6.6 GM/DL (6.4-8.2)
[2022-09-05 08:35] LABS: BILIRUBIN,TOTAL 0.4 MG/DL (0.1-1.0)
[2022-09-05 08:37] LABS: CREATININE SERUM 1.4 MG/DL (0.60-1.30)
[2022-09-05 08:46] LABS: INR 0.9 (0.8-1.4); PROTHROMBIN TIME PATIENT 12.4 SEC (12.2-14.7)
--- NOTE | 2022-09-05 10:42 | ED GI ---
General Chief Complaint: Rect Problems Stated Complaint: RECTAL BLEEDING Nursing Triage Note: PT TO RM 7 PER W/C PT CO OF HAVING RECTAL BLEEDING STARTING AT 2200 LAST PM. PT STATES HAS COLONOSCOPY APPROX 2 WEEKS AGO AND HAD POLYPS REMOVED. DENIES PAIN AT THIS X. Source of Information: Patient Exam Limitations: No Limitations History of Present Illness Date Seen by Provider: Sep 05, 2022 Time Seen by Provider: 07:10 Initial Comments This is 77-year-old gentleman presents to the emergency room with complaint of rectal bleeding that started late last night. Bleeding was bright red blood per rectum. He is denying any pain. He does not appear to be actively bleeding at the time of presentation. He had colonoscopy with Dr. Gross on August 19 and multiple polyps were removed. He also was noted to have sigmoid diverticulosis. He felt woozy but otherwise has been asymptomatic. He had cardiac angiography with stent placement earlier this year. He took 3 months of Plavix but is no longer taking Plavix at this time. Allergies and Home Medications Allergies Coded Allergies: Penicillins (Verified Allergy, Unknown, 11/19/21) propoxyphene (Verified Allergy, Unknown, 11/19/21) Patient Home Medication List Home Medication List Reviewed: Yes Albuterol Sulfate (Proair Hfa) 90 Mcg Hfa.aer.ad, 8.5 GM IH DAILY, (Reported) Entered as Reported by: CHRISTINA SARGENT on 08/12/22 0935 Aspirin (Aspirin EC) 81 Mg Tablet.dr, 81 MG PO DAILY, (Reported) Entered as Reported by: VERONICA MILLER on 11/19/21 0808 Atorvastatin Calcium (Atorvastatin Calcium) 20 Mg Tablet, 20 MG PO DAILY, (Reported) Entered as Reported by: VERONICA MILLER on 11/19/21 0837 Calcium Polycarbophil (Fibercon) 625 Mg Tablet, 625 MG PO DAILY, (Reported) Entered as Reported by: CHRISTINA SARGENT on 08/12/22 0935 Cholecalciferol (Vitamin D3) (Vitamin D3) 50 Mcg (2000 Unit) Capsule, 50 MCG PO DAILY, (Reported) Entered as Reported by: CHRISTINA SARGENT on 08/12/22 0935 Glimepiride (Glimepiride) 1 Mg Tablet, 1 MG PO DAILY, (Reported) Entered as Reported by: CHRISTINA SARGENT on 08/12/22 0935 Losartan Potassium (Losartan Potassium) 25 Mg Tablet, 25 MG PO DAILY, (Reported) Entered as Reported by: VERONICA MILLER on 11/19/21 0808 Montelukast Sodium (Montelukast Sodium) 10 Mg Tablet, 10 MG PO DAILY, (Reported) Entered as Reported by: CHRISTINA SARGENT on 08/12/22 0935 Multivit-Min/Folic Acid/Biotin (Hair, Skin & Nails Caplet) 66.7 Mcg-1,000 Mcg Tablet, 1 EACH PO DAILY, (Reported) Entered as Reported by: CHRISTINA SARGENT on 08/12/22 0935 Mv-Mn/Om3/Dha/Epa/Fish/Lut/Fidel (Ocuvite Adult 50 Plus Softgel) 250 Mg (90 Mg-160 Mg)-5 Mg-1 Mg Capsule, 1 EACH PO DAILY, (Reported) Entered as Reported by: CHRISTINA SARGENT on 08/12/22 0935 Ranolazine (Ranexa) 500 Mg Tab.er.12h, 500 MG PO BID Prescribed by: NERISSA ROMAN on 12/23/21 1621 Tamsulosin HCl (Flomax) 0.4 Mg Cap, 0.4 MG PO DAILY, (Reported) Entered as Reported by: CHRISTINA SARGENT on 08/12/22 0935 Review of Systems Review of Systems Constitutional: no symptoms reported EENTM: No Symptoms Reported Respiratory: No Symptoms Reported Cardiovascular: See HPI Gastrointestinal: See HPI Genitourinary: No Symptoms Reported Musculoskeletal: no symptoms reported Skin: no symptoms reported Psychiatric/Neurological: No Symptoms Reported Endocrine: No Symptoms Reported Hematologic/Lymphatic: See HPI Past Iarepuz-Vwbbub-Rwrois Hx Patient Social History Tobacco Use?: No Smoking Status: Former Smoker Substance use?: No Alcohol Use?: No Pt feels they are or have been: No Immunizations Up To Date First/Initial COVID19 Vaccinat: NO Second COVID19 Vaccination Pteer: NO Third COVID19 Vaccination Date: NO Seasonal Allergies Seasonal Allergies: No Past Medical History Surgery/Hospitalization HX: BILATERAL HIP REPLACEMENT, HEART STENT FEW MONTHS AGO, COPD, COLONOSCOPY W POLPECTOMY Surgeries: Yes (BILAT HIP REPLACEMENT, CATARACT) Abdominal (Colonoscopy with polypectomy 2021), Coronary Stent, Eye Surgery, Joint Replacement, Orthopedic Respiratory: Yes COPD Cardiac: Yes Coronary Artery Disease, High Cholesterol, Hypertension Neurological: No Genitourinary: No Gastrointestinal: Yes Diverticulosis, Hemorrhoids, Polyps Musculoskeletal: Yes Arthritis Endocrine: No HEENT: No Cancer: No Psychosocial: No Integumentary: No Blood Disorders: No Physical Exam Vital Signs Vital Signs - First Documented 09/05/22 09/05/22 07:05 07:50 Temp 36.8 Pulse 71 Resp 18 B/P (MAP) 128/76 (93) Pulse Ox 95 O2 Delivery Room Air Capillary Refill : Less Than 3 Seconds Height/Weight/BMI Height: '" Weight: lbs. oz. kg; 42.00 BMI Method: General Appearance: WD/WN, no apparent distress, obese HEENT: PERRL/EOMI, normal ENT inspection Neck: normal inspection Respiratory: lungs clear, no respiratory distress; No crackles; wheezing Cardiovascular: regular rate, rhythm, no edema, no murmur Gastrointestinal: normal bowel sounds, non tender, soft Rectal: normal exam, normal rectal tone; No mass, No tenderness; other (Small dark blood on tissue tucked in to fold over anus) Extremities: normal inspection Neurologic/Psychiatric: alert, normal mood/affect, oriented x 3 Skin: normal color, warm/dry Progress/Results/Core Measures Results/Orders Lab Results Laboratory Tests Test 09/05/22 08:12 09/05/22 08:26 Range/Units White Blood Count 10.8 4.3-11.0 10^3/uL Red Blood Count 3.81 L 4.30-5.52 10^6/uL Hemoglobin 11.7 L 13.3-17.7 g/dL Hematocrit 35 L 40-54 % Mean Corpuscular Volume 92 80-99 fL Mean Corpuscular Hemoglobin 31 25-34 pg Mean Corpuscular Hemoglobin Concent 33 32-36 g/dL Red Cell Distribution Width 13.4 10.0-14.5 % Platelet Count 173 130-400 10^3/uL Mean Platelet Volume 9.7 9.0-12.2 fL Immature Granulocyte % (Auto) 1 % Neutrophils (%) (Auto) 76 H 42-75 % Lymphocytes (%) (Auto) 17 12-44 % Monocytes (%) (Auto) 4 0-12 % Eosinophils (%) (Auto) 1 0-10 % Basophils (%) (Auto) 1 0-10 % Neutrophils # (Auto) 8.2 H 1.8-7.8 10^3/uL Lymphocytes # (Auto) 1.8 1.0-4.0 10^3/uL Monocytes # (Auto) 0.5 0.0-1.0 10^3/uL Eosinophils # (Auto) 0.2 0.0-0.3 10^3/uL Basophils # (Auto) 0.1 0.0-0.1 10^3/uL Immature Granulocyte # (Auto) 0.1 0.0-0.1 10^3/uL Sodium Level 136 135-145 MMOL/L Potassium Level 4.4 3.6-5.0 MMOL/L Chloride Level 102 98-107 MMOL/L Carbon Dioxide Level 20 L 21-32 MMOL/L Anion Gap 14 5-14 MMOL/L Blood Urea Nitrogen 31 H 7-18 MG/DL Creatinine 1.40 H 0.60-1.30 MG/DL Estimat Glomerular Filtration Rate 52 BUN/Creatinine Ratio 22 Glucose Level 190 H 70-105 MG/DL Calcium Level 9.0 8.5-10.1 MG/DL Corrected Calcium 9.2 8.5-10.1 MG/DL Total Bilirubin 0.4 0.1-1.0 MG/DL Aspartate Amino Transf (AST/SGOT) 15 5-34 U/L Alanine Aminotransferase (ALT/SGPT) 20 0-55 U/L Alkaline Phosphatase 49 40-136 U/L Total Protein 6.6 6.4-8.2 GM/DL Albumin 3.8 3.2-4.5 GM/DL Prothrombin Time 12.4 12.2-14.7 SEC INR Comment 0.9 0.8-1.4 Activated Partial Thromboplast Time 20 L 24-35 SEC My Orders Orders - NERISSA SHAH MD Cbc With Automated Diff (09/05/22 07:20) Comprehensive Metabolic Panel (09/05/22 07:20) Protime With Inr (09/05/22 07:20) Partial Thromboplastin Time (09/05/22 07:20) Ed Iv/Invasive Line Start (09/05/22 07:20) Albuterol/Ipra Inhalation Soln (Duoneb I (09/05/22 07:45) Svn Small Volume Nebulizer (09/05/22 07:41) Medications Given in ED Vital Signs/I&O 09/05/22 09/05/22 09/05/22 07:05 07:50 10:50 Temp 36.8 Pulse 71 71 Resp 18 18 B/P (MAP) 128/76 (93) 128/76 Pulse Ox 95 98 98 O2 Delivery Room Air Room Air Blood Pressure Mean: 93 Progress Progress Note : Progress Note Patient received albuterol for his wheezing. There were no findings in his work-up requiring emergent intervention. He had no significant bleeding during his ER stay. See discharge instructions for further discussion. I did advise him to discuss whether he should be restarting Plavix with his cardiology team next week. Departure Impression Primary Impression: Rectal bleeding Additional Impression: History of coronary artery stent placement Disposition: HOME, SELF-CARE Condition: Stable Departure-Patient Inst. Decision time for Depature: 10:38 Referrals: GURDEEP MCINTYRE DO (PCP/Family) Primary Care Physician Patient Instructions: Bloody Stools, Adult (DC), Colon Polypectomy, Diverticulosis, Hemorrhoids ED Add. Discharge Instructions: You have multiple possible causes for rectal bleeding. These include diverticulosis, recent polypectomy, and internal hemorrhoids. Observe a clear liquid diet for the next 24 hours. Then gradually advance your diet with small quantities of bland food as tolerated. Try to keep your stools soft and avoid constipation. Eat plenty of fruits, vegetables, fiber, and whole grains. You may use a stool softener such as Colace to prevent constipation. Even if bleeding has stopped, you may still pass some blood that remains pooled in your colon at this time. You may see some blood for the next day or two. Return to the ER if you are passing large amounts of blood or if you develop secondary symptoms of anemia or blood loss such as lightheadedness, worsening shortness of breath, notable fatigue, etc. Also return to the ER if you develop other symptoms or complications such as fever, abdominal pain, vomiting, etc. Please contact Dr. Aldridge on Wednesday to inquire about your Plavix (clopidogrel) use. Longer treatment with Plavix may be recommended based on your stent placement earlier in the year. Contact Dr. Gross's office on Wednesday to arrange follow-up to discuss your bleeding. All discharge instructions reviewed with patient and/or family. Voiced understanding. Copy Copies To 1: GURDEEP MCINTYRE DO; MEHRAN GROSS MD Copies To 2: LIVIA ALDRIDGE MD, JOSHUA T MD Sep 05, 2022 10:42
[2022-09-05 10:50] VITALS: BP 128/76
== END 2022-09-05 10:50 | disposition home or self-care (01) ==
LOC: EDUNIT# 06:33 → ER 06:36
DX: K62.5 Hemorrhage of anus and rectum (principal); Z95.5 Presence of coronary angioplasty implant and graft; Z87.891 Personal history of nicotine dependence; Z28.310 Unvaccinated for COVID-19
CPT/HCPCS: 36415; 80053; 85025; 85610; 85730; 94640; 99281

== ENCOUNTER → 2022-10-19 | Outpatient (CLI) | payer MEDICARE, OTHER ==
[~2022-10-19] MED LIST changes: +CATHETER FLUSH 10 ML SYR IVP PRN; +REGADENOSON 0.4 MG/5 ML SYR (LEXISCAN) IV ONE
[2022-10-19 08:43] VITALS: BP 143/69
--- NOTE | 2022-10-19 11:07 | Cardiology Stress Test Report ---
Stress Test Report Date of Procedure/Referring: Date of Procedure: Oct 19, 2022 PCP Yolanda Ga DO Admitting Physician Admitting Physician: Attending Physician: Chente Aldrdige MD Baseline Heart Rate: 71 Baseline Blood Pressure: Blood Pressure Systolic: 143 Blood Pressure Diastolic: 69 Baseline Vitals Vital Signs Date Time Temp Pulse Resp B/P (MAP) Pulse Ox O2 Delivery O2 Flow Rate FiO2 10/19/22 08:43 71 143/69 (93) Baseline EKG: Baseline EKG: NSR Summary After explaining the procedure to the patient, he signed a consent and then brought to the stress nuclear laboratory. Patient received 0.4 mg Lexiscan for stress test, ECG, heart rate and blood pressure were monitored continuously. Resting and stress dose of radio tracer were injected, imaging was acquired and reviewed in short axis, horizontal long axis and vertical long axis views. TID: 1.01 SSS: 2 SDS: 1 EF: 57 1. Patient tolerated Lexiscan well 2. Typical male pattern with no significant ischemia or infarction on SPECT images 3. Normal left ventricular size, ejection fraction 57% Copy Copies To 1: YOLANDA GA BASHAR J MD Oct 19, 2022 11:07
== END ==
LOC: CARD 07:47
PROVIDERS: ATTEND Internal Medicine Cardiovascular Disease
DX: I47.20 Ventricular tachycardia, unspecified (principal)
CPT/HCPCS: 78452; 93017; A9502

== ENCOUNTER 2023-08-17 08:52 | Outpatient (CLI) | payer MEDICARE ==
[~2023-08-17 08:52] MED LIST changes: -CATHETER FLUSH 10 ML SYR IVP PRN; -REGADENOSON 0.4 MG/5 ML SYR (LEXISCAN) IV ONE
== END 2023-08-17 09:11 ==
LOC: SLEEP 08:52
PROVIDERS: ATTEND Internal Medicine Cardiovascular Disease
DX: G47.33 Obstructive sleep apnea (adult) (pediatric) (principal); G47.10 Hypersomnia, unspecified; G47.36 Sleep related hypoventilation in conditions classified elsewhere; I10 Essential (primary) hypertension; R00.1 Bradycardia, unspecified
CPT/HCPCS: G0399